=== PATIENT | female | born 1995 | race Two or more races ===

== ENCOUNTER 2017-01-13 12:12 | Emergency (ER) | payer BC ==
[2017-01-13 13:18] LABS: ABSOLUTE BASOPHILS # (AUTO) 0.1 10^3/uL (0.0-0.2); ABSOLUTE EOSINOPHILS # (AUTO) 0.2 10^3/uL (0.0-0.6); ABSOLUTE LYMPHOCYTES (AUTO) 2.2 10^3/uL (0.5-4.7); ABSOLUTE MONOCYTES (AUTO) 0.7 10^3/uL (0.1-1.4); EOSINOPHILS % (AUTO) 2.8 % (0-6); HEMATOCRIT 39.4 % (36.0-47.0); HEMOGLOBIN 13.5 g/dL (12.0-15.5); HGB HCT DIFFERENCE 1.1; LYMPHOCYTES % (AUTO) 27.4 % (13-45); MEAN CORPUSCULAR HEMOGLOBIN 31.8 pg (27.0-33.4); MEAN CORPUSCULAR HGB CONC 34.3 g/dL (32.0-36.0); MEAN CORPUSCULAR VOLUME 93 fl (80-97); MONOCYTES % (AUTO) 8.3 % (3-13); RED BLOOD COUNT 4.24 10^6/uL (3.72-5.28); RED CELL DISTRIBUTION WIDTH 12.7 % (11.5-14.0); SEGMENTED NEUTROPHILS % (AUTO) 60.5 % (42-78); WHITE BLOOD COUNT 8.2 10^3/uL (4.0-10.5)
[2017-01-13 13:26] LABS: APPEARANCE,URINE CLEAR; BILIRUBIN,URINE NEGATIVE (NEGATIVE); GLUCOSE, URINE NEGATIVE (NEGATIVE); KETONES,URINE NEGATIVE (NEGATIVE); LEUKOCYTE ESTERASE,URINE NEGATIVE (NEGATIVE); NITRITE,URINE NEGATIVE (NEGATIVE); PROTEIN,URINE NEGATIVE (NEGATIVE); UROBILINOGEN,URINE NEGATIVE mg/dL (<2.0)
[2017-01-13 13:33] LABS: ALANINE AMINOTRANSFERASE 36 U/L (9-52); ALBUMIN 4.4 g/dL (3.5-5.0); ALKALINE PHOSPHATASE 82 U/L (38-126); ANION GAP 12 (5-19); ASPARTATE AMINO TRANSFERASE 20 U/L (14-36); BILIRUBIN,DIRECT 0.3 mg/dL (0.0-0.4); BILIRUBIN,TOTAL 0.6 mg/dL (0.2-1.3); BLOOD UREA NITROGEN 11 mg/dL (7-20); CALCIUM 9.7 mg/dL (8.4-10.2); CARBON DIOXIDE 20 mmol/L (22-30); CHLORIDE 107 mmol/L (98-107); CREATININE RESULT 0.68 mg/dL (0.52-1.25); GLUCOSE 88 mg/dL (75-110); POTASSIUM 4.1 mmol/L (3.6-5.0); SODIUM 139.2 mmol/L (137-145); TOTAL PROTEIN 7.9 g/dL (6.3-8.2)
--- NOTE | 2017-01-13 13:52 | ER Document Report ---
HPI - HPI Pain Level: 5 Notes: Patient is a 21-year-old female, , who presents the ED complaining of lower abdominal/pelvic cramping intermittently 2 days. Currently the patient does not have any discomfort. Patient states that this is her first and she just wants to make sure that the baby is okay. Patient states that she would like to get out a hearing eat some food as soon as the results are in. Patient does note urinary frequency over the last couple days as well without any burning. Patient denies any vaginal discharge or bleeding along with any urethral discharge or bleeding. Patient states that she is still eating and drinking normally otherwise. Her bowel movements have been normal. She denies any recent illness, travel, sick contacts. Denies any drug allergies. Patient is taking prenatals daily. Denies any other significant past medical history. Patient states that she is being seen by the health department and has a scheduled ultrasound in the next week or so. Patient admits to smoking but denies any other illicit drug use or alcohol intake. Denies any fever, headache , URI, sore throat, chest pain, palpitations, syncope, cough, wheeze, shortness breath, dyspnea, abdominal pain otherwise, nausea/vomiting/diarrhea/constipation , numbness/tingling, or rash. - ROS Notes: REVIEW OF SYSTEMS: CONSTITUTIONAL : Denies fever, chills, or sweats. Denies recent illness. EENT: Denies eye, ear, throat, or mouth pain or symptoms. Denies nasal or sinus congestion or discharge. Denies throat, tongue, or mouth swelling or difficulty swallowing. CARDIOVASCULAR: Denies chest pain. Denies palpitations or racing or irregular heart beat. Denies ankle edema. RESPIRATORY: Denies cough, cold, or chest congestion. Denies shortness of breath, difficulty breathing, or wheezing. GASTROINTESTINAL: see hpi GENITOURINARY: see hpi FEMALE GENITOURINARY: Denies vaginal bleeding, Denies vaginal discharge or odor. MUSCULOSKELETAL: Denies back or neck pain or stiffness. Denies joint pain or swelling. SKIN: Denies rash, lesions or sores. NEUROLOGICAL: Denies confusion or altered mental status. Denies passing out or loss of consciousness. Denies dizziness or lightheadedness. Denies headache. Denies weakness or paralysis or loss of use of either side. Denies problems with gait or speech. Denies sensory loss, numbness, or tingling. ALL OTHER SYSTEMS REVIEWED AND NEGATIVE. Dictation was performed using [employer] voice recognition software - CARDIOVASCULAR Cardiovascular: DENIES: Chest pain - DERM Skin Color: Normal Past Medical History - Social History Smoking Status: Current Every Day Smoker Chew tobacco use (# tins/day): No Frequency of alcohol use: None Drug Abuse: None Family History: Reviewed & Not Pertinent Renal/ Medical History: Denies: Hx Peritoneal Dialysis Surgical Hx: Negative - Immunizations Hx Diphtheria, Pertussis, Tetanus Vaccination: Yes Vertical Provider Document - CONSTITUTIONAL Agree With Documented VS: Yes Notes: PHYSICAL EXAMINATION: GENERAL: Well-appearing, well-nourished and in no acute distress. HEAD: Atraumatic, normocephalic. EYES: Pupils equal round and reactive to light, extraocular movements intact, sclera anicteric, conjunctiva are normal. ENT: EAC clear b/l. TM's intact b/l without erythema, fluid, or perforation. Nares patent and without discharge. oropharynx clear without exudates. No tonsilar hypertrophy or erythema. Moist mucous membranes. No sinus tenderness. NECK: Normal range of motion, supple without lymphadenopathy LUNGS: Breath sounds clear to auscultation bilaterally and equal. No wheezes rales or rhonchi. HEART: Regular rate and rhythm without murmurs, rubs, gallops. ABDOMEN: Soft, nondistended abdomen. No guarding, no rebound. No masses appreciated. Normal bowel sounds present. No CVA tenderness bilaterally. + mild tenderness to pelvic palpation. Psoas/obturator/rosving's negative. Musculoskeletal: FROM to passive/active. Strength 5+/5. Extremities: No cyanosis, clubbing, or edema b/l. Peripheral pulses 2+. Capillary refill less than 3 seconds. NEUROLOGICAL: Normal speech, normal gait. Normal sensory, motor exams PSYCH: Normal mood, normal affect. SKIN: Warm, Dry, normal turgor, no rashes or lesions noted. - INFECTION CONTROL TRAVEL OUTSIDE OF THE [place] IN LAST 30 DAYS: No - RESPIRATORY O2 Sat by Pulse Oximetry: 99 Course - Re-evaluation Re-evalutation: 01/13/17 14:15 Patient is an afebrile, well-hydrated, female who presents to the ED with pelvic cramping/pain without any vaginal bleeding or discharge. Vitals are stable. PE otherwise unremarkable. Ultrasound showed a left gestational sac approximately 5 weeks of age without any free fluid or masses noted. Beta hCG was just over 1200 which correlates well with the date range of the . CBC, CMP, urinalysis were unremarkable for any acute pathology. Reviewed with Dr. Rose who is in agreement with discharge with close follow-up with the OB/ [facility] in 1-2 days for a recheck and another beta hCG. Conservative measures for symptoms. Pt declined tylenol today. Advised recheck with her [employer] in the next 1-2 days. Return to the ED with any worsening/concerning symptoms otherwise as reviewed in discharge. Patient is in agreement. - Vital Signs Vital signs: Temp Pulse Resp BP Pulse Ox 98.0 F 100 20 129/75 H 99 01/13/17 12:30 01/13/17 12:30 01/13/17 12:30 01/13/17 12:30 01/13/17 12:30 - Laboratory Result Diagrams: 01/13/17 12:59 01/13/17 12:59 Discharge - Discharge Clinical Impression: Pelvic cramping Condition: Stable Disposition: HOME, SELF-CARE Additional Instructions: Maintain adequate fluid intake Tylenol as needed Take prenatals as otherwise directed Recheck with your OB-[facility]/Health department in 1-2 days for a recheck Return to the ED with any worsening symptoms and/or development of fever, headache, chest pain, palpitations, syncope, shortness of breath, trouble breathing, worsening abdominal pain, n/v/d, blood in stool/urine, vaginal bleeding, vaginal discharge/foul odor, loss of control of bowel/bladder, urinary retention, muscle weakness/paralysis, saddle anesthesia, numbness/ tingling, or other worsening symptoms that are concerning to you. Forms: Elevated Blood Pressure, Smoking Cessation Education [facility]errals: [facility]Provider [facility] - Follow up tomorrow
--- NOTE | 2017-01-13 14:01 | RADIOLOGY REPORT (SQ) ---
EXAM DESCRIPTION: U/S OB TRANSVAGINAL W/O DOP COMPLETED DATE/TIME: 01/13/2017 1:51 pm REASON FOR STUDY: pelvic pain COMPARISON: None. TECHNIQUE: Transvaginal static and realtime grayscale images acquired of the pelvis. Additional shahram cted spectral and color Doppler images recorded. All images stored on PACs. bHCG: Not available. LIMITATIONS: None. FINDINGS: UTERUS: No masses. Possible bicornuate configuration. GESTATIONAL SAC: Possible gestational sac on the left side, measuring 5 weeks. YOLK SAC: No. POLE: No. RIGHT ADNEXA: Normal ovary with normal vascular flow. No adnexal free fluid. No adnexal masses. LEFT ADNEXA: Normal ovary with normal vascular flow. No adnexal free fluid. No adnexal masses. FREE FLUID: None. OTHER: No other significant finding. 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 POSSIBLE EARLY INTRAUTERINE ON THE LEFT SIDE. BHCG LEVEL NOT AVAILABLE FOR CORRELATION WITH US FINDINGS. CONSIDER F/U BHCG AND/OR ULTRASOUND FOR VERIFICATION AND TO EXCLUDE ECTOPIC . Trimester of : First - 0 to 13 weeks. TECHNICAL DOCUMENTATION: JOB ID: [id number]- All Rights Reserved
[2017-01-13 14:43] VITALS: BP 103/76
== END 2017-01-13 14:40 | disposition home or self-care (01) ==
LOC: ER 12:12
DX: O26.899 Other specified pregnancy related conditions, unspecified trimester (principal); R10.2 Pelvic and perineal pain; R35.0 Frequency of micturition; O99.330 Smoking (tobacco) complicating pregnancy, unspecified trimester; Z3A.00 Weeks of gestation of pregnancy not specified; Z79.899 Other long term (current) drug therapy
CPT/HCPCS: 36415; 76817; 80053; 81001; 84702; 85025; 99284

== ENCOUNTER 2017-08-17 14:20 | Outpatient (CLI) | payer BC, OTHER ==
[2017-08-17 15:08] LABS: AMORPHOUS SEDIMENT,URINE TRACE /HPF; APPEARANCE,URINE TURBID; BILIRUBIN,URINE NEGATIVE (NEGATIVE); COLOR,URINE YELLOW; GLUCOSE, URINE NEGATIVE (NEGATIVE); KETONES,URINE NEGATIVE (NEGATIVE); LEUKOCYTE ESTERASE,URINE SMALL (NEGATIVE); NITRITE,URINE NEGATIVE (NEGATIVE); PROTEIN,URINE NEGATIVE (NEGATIVE); URINE SPECIFIC GRAVITY 1.013; UROBILINOGEN,URINE NEGATIVE mg/dL (<2.0)
[2017-08-17 15:27] LABS: URINE AMPHETAMINES SCREEN NEGATIVE; URINE BARBITURATES SCREEN NEGATIVE; URINE BENZODIAZEPINES SCREEN NEGATIVE; URINE COCAINE SCREEN NEGATIVE; URINE MARIJUANA (THC) SCREEN NEGATIVE; URINE METHADONE SCREEN NEGATIVE; URINE PHENCYCLIDINE SCREEN NEGATIVE
[2017-08-17 15:41] LABS: ABSOLUTE EOSINOPHILS # (AUTO) 0.2 10^3/uL (0.0-0.6); ABSOLUTE LYMPHOCYTES (AUTO) 1.6 10^3/uL (0.5-4.7); ABSOLUTE MONOCYTES (AUTO) 0.8 10^3/uL (0.1-1.4); ABSOLUTE NEUT (AUTO) 7.4 10^3/uL (1.7-8.2); BASOPHILS % (AUTO) 0.3 % (0-2); EOSINOPHILS % (AUTO) 1.5 % (0-6); HEMATOCRIT 31.8 % (36.0-47.0); LYMPHOCYTES % (AUTO) 16.3 % (13-45); MEAN CORPUSCULAR HGB CONC 34.5 g/dL (32.0-36.0); MEAN CORPUSCULAR VOLUME 90 fl (80-97); MONOCYTES % (AUTO) 7.9 % (3-13); PLATELET COUNT 244 10^3/uL (150-450); RED BLOOD COUNT 3.54 10^6/uL (3.72-5.28); RED CELL DISTRIBUTION WIDTH 13.2 % (11.5-14.0); TOTAL CELLS COUNTED % (AUTO) 100 %
[2017-08-17] MEDS ORDERED: RINGERS SOLUTION,LACTATED 1,000 ML IV PRN (15:49)
== END 2017-08-17 16:52 | disposition home or self-care (01) ==
LOC: LC 14:20
PROVIDERS: ATTEND Obstetrics & Gynecology Gynecology
PROC: 4A1HXCZ Monitoring of Products of Conception, Cardiac Rate, External Approach (ICD-10-PCS; principal; 2017-08-17)
DX: O26.893 Other specified pregnancy related conditions, third trimester (principal); R10.9 Unspecified abdominal pain; E86.0 Dehydration; Z3A.34 34 weeks gestation of pregnancy
CPT/HCPCS: 36415; 59025; 80307; 81001; 85025

== ENCOUNTER 2017-08-20 06:32 | Outpatient (CLI) | payer BC, OTHER ==
[2017-08-20 07:45] LABS: APPEARANCE,URINE CLOUDY; BILIRUBIN,URINE NEGATIVE (NEGATIVE); COLOR,URINE YELLOW; GLUCOSE, URINE NEGATIVE (NEGATIVE); KETONES,URINE NEGATIVE (NEGATIVE); LEUKOCYTE ESTERASE,URINE LARGE (NEGATIVE); NITRITE,URINE NEGATIVE (NEGATIVE); PROTEIN,URINE NEGATIVE (NEGATIVE); URINE SPECIFIC GRAVITY 1.014; UROBILINOGEN,URINE NEGATIVE mg/dL (<2.0)
[2017-08-20 08:00] LABS: URINE AMPHETAMINES SCREEN NEGATIVE; URINE BARBITURATES SCREEN NEGATIVE; URINE BENZODIAZEPINES SCREEN NEGATIVE; URINE COCAINE SCREEN NEGATIVE; URINE MARIJUANA (THC) SCREEN NEGATIVE; URINE METHADONE SCREEN NEGATIVE; URINE PHENCYCLIDINE SCREEN NEGATIVE
[2017-08-20 09:00] LABS: ABSOLUTE BASOPHILS # (AUTO) 0.1 10^3/uL (0.0-0.2); ABSOLUTE EOSINOPHILS # (AUTO) 0.2 10^3/uL (0.0-0.6); ABSOLUTE LYMPHOCYTES (AUTO) 1.9 10^3/uL (0.5-4.7); ABSOLUTE MONOCYTES (AUTO) 0.9 10^3/uL (0.1-1.4); ABSOLUTE NEUT (AUTO) 7.7 10^3/uL (1.7-8.2); BASOPHILS % (AUTO) 0.5 % (0-2); EOSINOPHILS % (AUTO) 2.1 % (0-6); HEMATOCRIT 31.7 % (36.0-47.0); HEMOGLOBIN 10.9 g/dL (12.0-15.5); LYMPHOCYTES % (AUTO) 17.9 % (13-45); MEAN CORPUSCULAR HGB CONC 34.6 g/dL (32.0-36.0); MEAN CORPUSCULAR VOLUME 90 fl (80-97); MONOCYTES % (AUTO) 8.7 % (3-13); PLATELET COUNT 238 10^3/uL (150-450); RED BLOOD COUNT 3.53 10^6/uL (3.72-5.28); RED CELL DISTRIBUTION WIDTH 12.6 % (11.5-14.0); SEGMENTED NEUTROPHILS % (AUTO) 70.8 % (42-78); TOTAL CELLS COUNTED % (AUTO) 100 %; WHITE BLOOD COUNT 10.8 10^3/uL (4.0-10.5)
[2017-08-20 09:16] LABS: ALANINE AMINOTRANSFERASE 19 U/L (9-52); ALBUMIN 3.2 g/dL (3.5-5.0); ALKALINE PHOSPHATASE 92 U/L (38-126); AMYLASE 50 U/L (30-110); ANION GAP 7 (5-19); ASPARTATE AMINO TRANSFERASE 17 U/L (14-36); BILIRUBIN,DIRECT 0.3 mg/dL (0.0-0.4); BILIRUBIN,TOTAL 0.3 mg/dL (0.2-1.3); BLOOD UREA NITROGEN 5 mg/dL (7-20); CALCIUM 9.1 mg/dL (8.4-10.2); CARBON DIOXIDE 22 mmol/L (22-30); CHLORIDE 107 mmol/L (98-107); GLUCOSE 81 mg/dL (75-110); LIPASE 60.8 U/L (23-300); POTASSIUM 3.5 mmol/L (3.6-5.0); SODIUM 135.9 mmol/L (137-145); TOTAL PROTEIN 6.1 g/dL (6.3-8.2)
== END 2017-08-20 09:51 | disposition home or self-care (01) ==
LOC: LC 06:32
PROVIDERS: ATTEND Student in an Organized Health Care Education/Training Program
PROC: 4A1HXCZ Monitoring of Products of Conception, Cardiac Rate, External Approach (ICD-10-PCS; principal; 2017-08-20)
DX: O47.03 False labor before 37 completed weeks of gestation, third trimester (principal); Z3A.35 35 weeks gestation of pregnancy
CPT/HCPCS: 36415; 59025; 80053; 80307; 81001; 82150; 83690; 85025

== ENCOUNTER 2017-08-29 15:47 | Outpatient (CLI) | payer BC, OTHER ==
[2017-08-29 16:28] LABS: AMORPHOUS SEDIMENT,URINE TRACE /HPF; APPEARANCE,URINE CLOUDY; BILIRUBIN,URINE NEGATIVE (NEGATIVE); COLOR,URINE STRAW; GLUCOSE, URINE NEGATIVE (NEGATIVE); KETONES,URINE NEGATIVE (NEGATIVE); LEUKOCYTE ESTERASE,URINE SMALL (NEGATIVE); NITRITE,URINE NEGATIVE (NEGATIVE); PROTEIN,URINE NEGATIVE (NEGATIVE); URINE SPECIFIC GRAVITY 1.003; UROBILINOGEN,URINE NEGATIVE mg/dL (<2.0)
[2017-08-29 16:47] LABS: URINE AMPHETAMINES SCREEN NEGATIVE; URINE BARBITURATES SCREEN NEGATIVE; URINE BENZODIAZEPINES SCREEN NEGATIVE; URINE COCAINE SCREEN NEGATIVE; URINE MARIJUANA (THC) SCREEN NEGATIVE; URINE METHADONE SCREEN NEGATIVE; URINE PHENCYCLIDINE SCREEN NEGATIVE
--- NOTE | 2017-08-29 17:24 | Non Stress Test Report ---
Non Stress Test Datetime Report Generated by CPN: 08/29/2017 17:24 DEMOGRAPHIC Test Number: 1 EGA NST: 36.4 EGA NST: 35.2 EGA NST: 34.6 INDICATION Indication for Study: Ordered by Provider Indication for Study: Ordered by Provider Indication for Study: Ordered by Provider Indication for Study (NST) Other: LC MONITORING Monitor Explained: Monitor Explained; Test Explained Monitor Explained: Monitor Explained; Test Explained; Patient Verbalized Understanding Monitor Explained: Monitor Explained; Test Explained; Patient Verbalized Understanding Time on Monitor: 08/29/2017 16:10 Time on Monitor: 08/20/2017 06:51 Time on Monitor: 08/17/2017 14:55 Time off Monitor: 08/29/2017 17:07 Time off Monitor: 08/20/2017 09:32 Time off Monitor: 08/17/2017 16:35 NST Duration: 57 NST Duration: 161 NST Duration: 100 NST INTERVENTIONS NST Interventions: PO Hydration; Reposition Patient NST Interventions: PO Hydration; IV Fluids NST Interventions: None Physician Notified NST: Dr. Burleson Physician Notified NST: Dr Reynolds BABY A: [id number] BABY A Movement : Present Movement : Present Movement : Present Contraction Frequency : None traced Contraction Frequency : Irregular Contraction Frequency : denies FHR Baseline : 130 FHR Baseline : 115 FHR Baseline : 110 Accelerations : 15X15 Accelerations : 15X15 Accelerations : 15X15 Decelerations : None Decelerations : None Decelerations : None Variability : Moderate 6-25bpm Variability : Moderate 6-25bpm Variability : Moderate 6-25bpm NST Review: Meets Criteria for Reactive NST NST Review: Meets Criteria for Reactive NST NST Review: Meets Criteria for Reactive NST NST Review and Verified By : Solitario Ortiz [facility] NST Results: Reactive NST Results: Reactive NST Results: Reactive NST REPORT Report Trigger: Send Report
== END 2017-08-29 17:17 | disposition home or self-care (01) ==
LOC: LC 15:47
PROVIDERS: ATTEND Obstetrics & Gynecology
PROC: 4A1HXCZ Monitoring of Products of Conception, Cardiac Rate, External Approach (ICD-10-PCS; principal; 2017-08-29)
DX: O47.03 False labor before 37 completed weeks of gestation, third trimester (principal); Z3A.36 36 weeks gestation of pregnancy
CPT/HCPCS: 59025; 80307; 81001

== ENCOUNTER 2017-09-01 14:37 | Outpatient (CLI) | payer BC, OTHER ==
--- NOTE | 2017-09-01 15:28 | Non Stress Test Report ---
Non Stress Test Datetime Report Generated by CPN: 09/01/2017 15:28 DEMOGRAPHIC EGA NST: 37.0 INDICATION Indication for Study: Ordered by Provider VITAL SIGNS Temperature - NST: 97.8 Pulse - NST: 88 RESP - NST: 14 NBPSYS NST: 101 NBPDIA NST: 57 MONITORING Monitor Explained: Monitor Explained; Test Explained; Patient Verbalized Understanding Time on Monitor: 09/01/2017 14:56 Time off Monitor: 09/01/2017 15:17 NST Duration: 21 NST INTERVENTIONS NST Interventions: PO Hydration; Reposition Patient Physician Notified NST: DR TAY BABY A: [id number] BABY A Movement : Present Contraction Frequency : NONE FHR Baseline : 125 Accelerations : 15X15 Decelerations : None Variability : Moderate 6-25bpm NST Review: Meets Criteria for Reactive NST NST Review and Verified By : Anton West RN NST Results: Reactive NST REPORT Report Trigger: Send Report
== END 2017-09-01 15:23 | disposition home or self-care (01) ==
LOC: LC 14:37
PROVIDERS: ATTEND Student in an Organized Health Care Education/Training Program
PROC: 4A1HXCZ Monitoring of Products of Conception, Cardiac Rate, External Approach (ICD-10-PCS; principal; 2017-09-01)
DX: O47.1 False labor at or after 37 completed weeks of gestation (principal); Z3A.37 37 weeks gestation of pregnancy
CPT/HCPCS: 59025

== ENCOUNTER 2017-09-03 20:47 | Outpatient (CLI) | payer BC, OTHER ==
[2017-09-03 21:29] LABS: APPEARANCE,URINE CLOUDY; BILIRUBIN,URINE NEGATIVE (NEGATIVE); COLOR,URINE YELLOW; GLUCOSE, URINE NEGATIVE (NEGATIVE); KETONES,URINE NEGATIVE (NEGATIVE); LEUKOCYTE ESTERASE,URINE LARGE (NEGATIVE); NITRITE,URINE NEGATIVE (NEGATIVE); PROTEIN,URINE NEGATIVE (NEGATIVE); URINE SPECIFIC GRAVITY 1.014; UROBILINOGEN,URINE NEGATIVE mg/dL (<2.0)
[2017-09-03 21:32] LABS: AMNISURE (ROM) NEGATIVE (NEGATIVE)
[2017-09-03 21:44] LABS: URINE AMPHETAMINES SCREEN NEGATIVE; URINE BARBITURATES SCREEN NEGATIVE; URINE BENZODIAZEPINES SCREEN NEGATIVE; URINE COCAINE SCREEN NEGATIVE; URINE MARIJUANA (THC) SCREEN NEGATIVE; URINE METHADONE SCREEN NEGATIVE; URINE PHENCYCLIDINE SCREEN NEGATIVE
== END 2017-09-03 22:06 | disposition home or self-care (01) ==
LOC: LC 20:47
PROVIDERS: ATTEND Obstetrics & Gynecology Gynecology
PROC: 4A1HXCZ Monitoring of Products of Conception, Cardiac Rate, External Approach (ICD-10-PCS; principal; 2017-09-03)
DX: O47.1 False labor at or after 37 completed weeks of gestation (principal); Z3A.37 37 weeks gestation of pregnancy
CPT/HCPCS: 59025; 80307; 81005; 84112

== ENCOUNTER 2017-09-09 04:52 | Outpatient (CLI) | payer BC, OTHER ==
--- NOTE | 2017-09-09 04:55 | Non Stress Test Report ---
Non Stress Test Datetime Report Generated by CPN: 09/09/2017 04:55 DEMOGRAPHIC Test Number: 5 EGA NST: 37.2 INDICATION Indication for Study: Ordered by Provider VITAL SIGNS Temperature - NST: 98.7 Pulse - NST: 82 RESP - NST: 18 NBPSYS NST: 98 NBPDIA NST: 55 URINE RESULTS Urine Protein, NST: Negative Urine Ketones - NST: Negative Urine Glucose - NST: Negative Urine Blood - NST: Negative MONITORING Monitor Explained: Monitor Explained; Test Explained; Patient Verbalized Understanding Time on Monitor: 09/03/2017 21:08 Time off Monitor: 09/03/2017 21:45 NST Duration: 37 NST INTERVENTIONS NST Interventions: None Physician Notified NST: Dr. Reynolds BABY A: [id number] BABY A Movement : Present Contraction Frequency : None FHR Baseline : 130 Accelerations : 15X15 Decelerations : None Variability : Moderate 6-25bpm NST Review: Meets Criteria for Reactive NST NST Review and Verified By : S. Lattibeapaddyir, RNC NST Results: Reactive NST REPORT Report Trigger: Send Report
[2017-09-09 05:36] LABS: APPEARANCE,URINE CLOUDY; BILIRUBIN,URINE NEGATIVE (NEGATIVE); COLOR,URINE YELLOW; GLUCOSE, URINE NEGATIVE (NEGATIVE); KETONES,URINE NEGATIVE (NEGATIVE); LEUKOCYTE ESTERASE,URINE LARGE (NEGATIVE); NITRITE,URINE NEGATIVE (NEGATIVE); PROTEIN,URINE NEGATIVE (NEGATIVE); URINE SPECIFIC GRAVITY 1.004; UROBILINOGEN,URINE NEGATIVE mg/dL (<2.0)
[2017-09-09 06:03] LABS: URINE AMPHETAMINES SCREEN NEGATIVE; URINE BARBITURATES SCREEN NEGATIVE; URINE BENZODIAZEPINES SCREEN NEGATIVE; URINE COCAINE SCREEN NEGATIVE; URINE MARIJUANA (THC) SCREEN NEGATIVE; URINE METHADONE SCREEN NEGATIVE; URINE PHENCYCLIDINE SCREEN NEGATIVE
[2017-09-09 07:04] LABS: CHLAM PCR NOT DETECTED (NOT DETECT); GON PCR NOT DETECTED (NOT DETECT)
== END 2017-09-09 06:21 | disposition home or self-care (01) ==
LOC: LC 04:52
PROVIDERS: ATTEND Obstetrics & Gynecology
PROC: 4A1HXCZ Monitoring of Products of Conception, Cardiac Rate, External Approach (ICD-10-PCS; principal; 2017-09-09)
DX: O36.8130 Decreased fetal movements, third trimester, not applicable or unspecified (principal); Z3A.38 38 weeks gestation of pregnancy
CPT/HCPCS: 80307; 81005; 87491; 87591

== ENCOUNTER 2017-09-14 01:47 | Outpatient (CLI) | payer BC, OTHER ==
--- NOTE | 2017-09-14 01:50 | Non Stress Test Report ---
Non Stress Test Datetime Report Generated by CPN: 09/14/2017 01:49 DEMOGRAPHIC EGA NST: 38.1 INDICATION Indication for Study: Decreased Movement; Ordered by Provider; Other Indication for Study (NST) Other: LC decreased FM MONITORING Monitor Explained: Monitor Explained; Test Explained; Patient Verbalized Understanding Time on Monitor: 09/09/2017 05:06 Time off Monitor: 09/09/2017 06:11 NST Duration: 65 NST INTERVENTIONS NST Interventions: PO Hydration; Reposition Patient Physician Notified NST: DR Caleb BABY A: [id number] BABY A Movement : Decreased Contraction Frequency : none FHR Baseline : 115 Accelerations : 15X15 Decelerations : None Variability : Moderate 6-25bpm NST Review: Meets Criteria for Reactive NST NST Review and Verified By : KATY Mahan NST Results: Reactive NST REPORT Report Trigger: Send Report
[2017-09-14 02:20] LABS: APPEARANCE,URINE CLOUDY; BILIRUBIN,URINE NEGATIVE (NEGATIVE); COLOR,URINE YELLOW; GLUCOSE, URINE NEGATIVE (NEGATIVE); KETONES,URINE NEGATIVE (NEGATIVE); LEUKOCYTE ESTERASE,URINE LARGE (NEGATIVE); NITRITE,URINE NEGATIVE (NEGATIVE); PROTEIN,URINE NEGATIVE (NEGATIVE); URINE SPECIFIC GRAVITY 1.005; UROBILINOGEN,URINE NEGATIVE mg/dL (<2.0)
[2017-09-14 02:34] LABS: URINE AMPHETAMINES SCREEN NEGATIVE; URINE BARBITURATES SCREEN NEGATIVE; URINE BENZODIAZEPINES SCREEN NEGATIVE; URINE COCAINE SCREEN NEGATIVE; URINE MARIJUANA (THC) SCREEN NEGATIVE; URINE METHADONE SCREEN NEGATIVE; URINE PHENCYCLIDINE SCREEN NEGATIVE
== END 2017-09-14 03:25 | disposition home or self-care (01) ==
LOC: LC 01:47
PROVIDERS: ATTEND Obstetrics & Gynecology
DX: Z34.90 Encounter for supervision of normal pregnancy, unspecified, unspecified trimester (principal)
CPT/HCPCS: 59025; 80307; 81005

== ENCOUNTER 2017-09-22 16:36 | Outpatient (CLI) | payer BC, OTHER ==
[2017-09-22 17:27] LABS: APPEARANCE,URINE CLOUDY; BILIRUBIN,URINE NEGATIVE (NEGATIVE); COLOR,URINE YELLOW; GLUCOSE, URINE NEGATIVE (NEGATIVE); KETONES,URINE NEGATIVE (NEGATIVE); LEUKOCYTE ESTERASE,URINE LARGE (NEGATIVE); NITRITE,URINE NEGATIVE (NEGATIVE); PROTEIN,URINE NEGATIVE (NEGATIVE); URINE SPECIFIC GRAVITY 1.013; UROBILINOGEN,URINE NEGATIVE mg/dL (<2.0)
[2017-09-22 17:39] LABS: URINE AMPHETAMINES SCREEN NEGATIVE; URINE BARBITURATES SCREEN NEGATIVE; URINE BENZODIAZEPINES SCREEN NEGATIVE; URINE COCAINE SCREEN NEGATIVE; URINE MARIJUANA (THC) SCREEN NEGATIVE; URINE METHADONE SCREEN NEGATIVE; URINE PHENCYCLIDINE SCREEN NEGATIVE
[2017-09-22 17:41] LABS: UR PRO/CREAT RATIO RESULT 0.2 mg/mg (0.0-0.2); URINE CREATININE 102.6 mg/dL (16-327); URINE PROTEIN 16.9 mg/dL (<12)
[2017-09-22 17:45] LABS: ABSOLUTE BASOPHILS # (AUTO) 0.1 10^3/uL (0.0-0.2); ABSOLUTE EOSINOPHILS # (AUTO) 0.1 10^3/uL (0.0-0.6); ABSOLUTE LYMPHOCYTES (AUTO) 1.7 10^3/uL (0.5-4.7); ABSOLUTE MONOCYTES (AUTO) 0.6 10^3/uL (0.1-1.4); ABSOLUTE NEUT (AUTO) 7.5 10^3/uL (1.7-8.2); BASOPHILS % (AUTO) 0.6 % (0-2); EOSINOPHILS % (AUTO) 0.9 % (0-6); HEMATOCRIT 29.7 % (36.0-47.0); HEMOGLOBIN 10.4 g/dL (12.0-15.5); LYMPHOCYTES % (AUTO) 17.2 % (13-45); MEAN CORPUSCULAR HEMOGLOBIN 31.6 pg (27.0-33.4); MEAN CORPUSCULAR HGB CONC 35.2 g/dL (32.0-36.0); MEAN CORPUSCULAR VOLUME 90 fl (80-97); MONOCYTES % (AUTO) 6.4 % (3-13); PLATELET COUNT 223 10^3/uL (150-450); RED CELL DISTRIBUTION WIDTH 13.6 % (11.5-14.0); SEGMENTED NEUTROPHILS % (AUTO) 74.9 % (42-78); TOTAL CELLS COUNTED % (AUTO) 100 %
[2017-09-22 18:04] LABS: ALANINE AMINOTRANSFERASE 22 U/L (9-52); ALBUMIN 3.3 g/dL (3.5-5.0); ALKALINE PHOSPHATASE 109 U/L (38-126); ANION GAP 10 (5-19); ASPARTATE AMINO TRANSFERASE 17 U/L (14-36); BILIRUBIN,DIRECT 0.1 mg/dL (0.0-0.4); BILIRUBIN,TOTAL 0.2 mg/dL (0.2-1.3); BLOOD UREA NITROGEN 6 mg/dL (7-20); CALCIUM 9.3 mg/dL (8.4-10.2); CARBON DIOXIDE 22 mmol/L (22-30); CHLORIDE 104 mmol/L (98-107); GLUCOSE 118 mg/dL (75-110); LDH 347 U/L (313-618); SODIUM 136.1 mmol/L (137-145); TOTAL PROTEIN 5.8 g/dL (6.3-8.2)
--- NOTE | 2017-09-22 18:42 | Non Stress Test Report ---
Non Stress Test Datetime Report Generated by CPN: 09/22/2017 18:42 DEMOGRAPHIC EGA NST: 40.0 INDICATION Indication for Study: Ordered by Provider MONITORING Monitor Explained: Monitor Explained; Test Explained; Patient Verbalized Understanding Time on Monitor: 09/22/2017 17:42 Time off Monitor: 09/22/2017 18:05 NST Duration: 23 NST INTERVENTIONS Physician Notified NST: H. Jus, CNM BABY A Movement : Present Contraction Frequency : occasional FHR Baseline : 125 Accelerations : 15X15 Decelerations : None Variability : Moderate 6-25bpm NST Review: Meets Criteria for Reactive NST NST Review and Verified By : TEJA Restrepo NST Results: Reactive NST REPORT Report Trigger: Send Report
== END 2017-09-22 19:41 | disposition home or self-care (01) ==
LOC: LC 16:36
PROVIDERS: ATTEND Obstetrics & Gynecology
PROC: 4A1HXCZ Monitoring of Products of Conception, Cardiac Rate, External Approach (ICD-10-PCS; principal; 2017-09-22)
DX: O47.1 False labor at or after 37 completed weeks of gestation (principal); O48.0 Post-term pregnancy; Z3A.40 40 weeks gestation of pregnancy
CPT/HCPCS: 36415; 59025; 80053; 80307; 81001; 82570; 83615; 84156; 84550; 85025

== ENCOUNTER 2017-09-23 17:32 | Outpatient (CLI) | payer BC, OTHER ==
[2017-09-23 18:13] LABS: URINE CREATININE 35.5 mg/dL (16-327); URINE PROTEIN 17.5 mg/dL (<12)
[2017-09-23 18:18] LABS: 24 HOUR URINE PROTEIN RESULT 483 mg/day (42-225)
--- NOTE | 2017-09-23 18:36 | RADIOLOGY REPORT (SQ) ---
EXAM DESCRIPTION: U/S OB LIMITED COMPLETED DATE/TIME: 09/23/2017 6:09 pm REASON FOR STUDY: AMBROSIO COMPARISON: 01/13/2017 TECHNIQUE: Limited transabdominal grayscale ultrasound for evaluation of specific requested obstetri miguel a parameters. LIMITATIONS: None. FINDINGS: CERVICAL LENGTH: Not measured. Closed. AMBROSIO: 6.7 cm. Deepest pocket 3.4 cm. FHR: 121 beats per minute. PRESENTATION: Cephalic. OTHER: No other significant findings. IMPRESSION: LIMITED OBSTETRICAL ULTRASOUND WITH MEASURED PARAMETERS DELINEATED ABOVE. Trimester of : Third trimester - 28 weeks to delivery. TECHNICAL DOCUMENTATION: JOB ID: [id number] [employer]- All Rights Reserved Reading location - IP/workstation name: [email or web address]
--- NOTE | 2017-09-23 18:38 | Non Stress Test Report ---
Non Stress Test Datetime Report Generated by CPN: 09/23/2017 18:38 DEMOGRAPHIC EGA NST: 40.1 INDICATION Indication for Study: Ordered by Provider MONITORING Monitor Explained: Monitor Explained; Test Explained; Patient Verbalized Understanding Time on Monitor: 09/23/2017 18:12 Time off Monitor: 09/23/2017 18:36 NST Duration: 24 NST INTERVENTIONS NST Interventions: PO Hydration; Reposition Patient Physician Notified NST: Dr. Caleb BABY A: [id number] BABY A Movement : Present Contraction Frequency : None FHR Baseline : 115 Accelerations : 15X15 Decelerations : None Variability : Moderate 6-25bpm NST Review: Meets Criteria for Reactive NST NST Review and Verified By : TEJA Restrepo Results: Reactive NST REPORT Report Trigger: Send Report
== END 2017-09-23 18:47 | disposition home or self-care (01) ==
LOC: LC 17:32
PROVIDERS: ATTEND Obstetrics & Gynecology
PROC: 4A1HXCZ Monitoring of Products of Conception, Cardiac Rate, External Approach (ICD-10-PCS; principal; 2017-09-23)
DX: O47.1 False labor at or after 37 completed weeks of gestation (principal); Z3A.40 40 weeks gestation of pregnancy
CPT/HCPCS: 59025; 76815; 82570; 84156

== ENCOUNTER 2017-09-24 21:53 | Inpatient (IN) | payer BC, OTHER ==
[2017-09-24] MEDS ORDERED: RINGERS SOLUTION,LACTATED 300 ML IV ONE (22:24)
[2017-09-24] MEDS ORDERED: DINOPROSTONE 10 MG VAGINAL INSERT.SR PV ONE (22:24)
[2017-09-24 22:36] LABS: HEMATOCRIT 31.1 % (36.0-47.0); HEMOGLOBIN 10.7 g/dL (12.0-15.5); MEAN CORPUSCULAR HEMOGLOBIN 30.9 pg (27.0-33.4); MEAN CORPUSCULAR HGB CONC 34.3 g/dL (32.0-36.0); MEAN CORPUSCULAR VOLUME 90 fl (80-97); PLATELET COUNT 234 10^3/uL (150-450); RED BLOOD COUNT 3.45 10^6/uL (3.72-5.28); RED CELL DISTRIBUTION WIDTH 13.3 % (11.5-14.0); WHITE BLOOD COUNT 9.7 10^3/uL (4.0-10.5)
[2017-09-24 22:50] LABS: APPEARANCE,URINE CLOUDY; BILIRUBIN,URINE NEGATIVE (NEGATIVE); COLOR,URINE YELLOW; GLUCOSE, URINE 50 mg/dL (NEGATIVE); KETONES,URINE NEGATIVE (NEGATIVE); LEUKOCYTE ESTERASE,URINE SMALL (NEGATIVE); NITRITE,URINE NEGATIVE (NEGATIVE); PROTEIN,URINE NEGATIVE (NEGATIVE); UROBILINOGEN,URINE NEGATIVE mg/dL (<2.0)
[2017-09-24 22:53] LABS: ALANINE AMINOTRANSFERASE 23 U/L (9-52); ALBUMIN 3.4 g/dL (3.5-5.0); ALKALINE PHOSPHATASE 101 U/L (38-126); ANION GAP 8 (5-19); ASPARTATE AMINO TRANSFERASE 16 U/L (14-36); BILIRUBIN,DIRECT 0.1 mg/dL (0.0-0.4); BILIRUBIN,TOTAL 0.2 mg/dL (0.2-1.3); BLOOD UREA NITROGEN 7 mg/dL (7-20); CALCIUM 10.2 mg/dL (8.4-10.2); CARBON DIOXIDE 25 mmol/L (22-30); CHLORIDE 105 mmol/L (98-107); GLUCOSE 103 mg/dL (75-110); LDH 353 U/L (313-618); POTASSIUM 3.1 mmol/L (3.6-5.0); SODIUM 138.1 mmol/L (137-145); URIC ACID 4.2 mg/dL (2.5-6.2)
[2017-09-24 23:08] LABS: URINE AMPHETAMINES SCREEN NEGATIVE; URINE BARBITURATES SCREEN NEGATIVE; URINE BENZODIAZEPINES SCREEN NEGATIVE; URINE COCAINE SCREEN NEGATIVE; URINE MARIJUANA (THC) SCREEN NEGATIVE; URINE METHADONE SCREEN NEGATIVE; URINE PHENCYCLIDINE SCREEN NEGATIVE
[2017-09-24] MEDS ORDERED: DINOPROSTONE 10 MG VAGINAL INSERT.SR ONE (23:20)
[2017-09-25 00:21] LABS: CHLAM PCR NOT DETECTED (NOT DETECT); GON PCR NOT DETECTED (NOT DETECT)
[2017-09-25] MEDS ORDERED: ZOLPIDEM TARTRATE 5 MG TABLET PO ONE (02:33)
[2017-09-25] MEDS ORDERED: ZOLPIDEM TARTRATE 5 MG TABLET ONE (02:34)
[2017-09-25] MEDS: RINGERS SOLUTION,LACTATED 1,000 ML IV PRN (02:36)
--- NOTE | 2017-09-25 08:31 | Admission Physical ---
Datetime Report Generated by CPN: 09/25/2017 08:30 CURRENT ADMISSION Chief Complaint: Scheduled Induction of Labor Indication for Induction: PreEclampsia Indication for Induction- Other: 24 hr urine protein-483 Admit Impression : Term, Intrauterine Admit Plan: Admit to Unit; Initiate Labor Induction Protocol ALLERGIES Medication Allergies: No Medication Allergies: No Known Allergies (09/24/2017) Latex: No Latex Allergies Food Allergies: None Environmental Allergies: None OBSTETRICAL HISTORY EDC: 09/22/2017 00:00 : 2 Para: 0 Term: 0 : 0 SAB: 0 IAB: 1 Ectopic: 0 Livin Cesareans: 0 VBACs: 0 Multiple Births: 0 Gestational Diabetes: No Rh Sensitization: No Incompetent Cervix: No ANIRUDH: No Infertility: No ART Treatment: No Uterine Anomaly: No IUGR: No Hx Previous C/S: No Macrosomia: No Hx Loss/Stillborn: No PIH: No Hx : No Placenta Previa/Abruption: No Depression/PP Depression: No PTL/PROM: No Post Hemorrhage: No Current Procedures: Ultrasound; NST Obstetrical History Comments: G1- EA2014 G2- current SEE RECORDS Alcohol: No Marijuana : No Cocaine: No Other Illicit Drugs: No Cigarettes: Current Everyday Smoker. [id number] Cigarette Frequency: 5 - 10 per day Advised to Stop: Yes MEDICAL HISTORY Diabetes: No Blood Transfusion: No Pulmonary Disease (Asthma, TB): No Breast Disease: No Hypertension: No [place] Surgery: No Heart Disease: No Hosp/Surgery: No Autoimmune Disorder: No Anesthetic Complications: No Kidney Disease: No Abnormal Pap Smear: No Neuro/Epilepsy: No Psychiatric Disorders: Yes Other Medical Diseases: No Hepatitis/Liver Disease: No Significant Family History: No Varicosities/Phlebitis: No Trauma/Violence : No Thyroid Dysfunction: No Medical History Comments: hx of anxiety and depression- not currently taking meds INFECTIOUS HISTORY Gonorrhea: No Genital Herpes: No Chlamydia: Yes Tuberculosis: No Syphilis: No Hepatitis: No HIV/AIDS Exposure: No Rash or Viral Illness: No HPV: No Infectious History Comments: Chlamydia 08/27/17 - JAVED negative PHYSICAL EXAM General: Normal HEENT: Normal Neurologic: Normal Thyroid: Deferred Heart: Normal Lungs: Normal Breast: Deferred Back: Normal Abdomen: Normal Genitourinary Exam: Deferred Extremities: Normal DTRs: Normal Pelvic Type: Adequate Physical Exam Comments: Gravid uterus Vital Signs: Reviewed; Within Normal Limits MEMBRANES Membranes: Intact FETUS A EGA: 40.3 Monitoring: External US FHR- Baseline: 120 Variability: Moderate 6-25bpm Accelerations: 15X15 FHR Category: Category I Presentation: Vertex Admit Comment: Social primigravida Smoker Anxiety Chlamydia in [id number] 24hr urine protein-483 IOL for mild pre-eclampsia Cervical ripening PLANS FOR LABOR AND DELIVERY Labor and Delivery: None Pain Management: Medications; Epidural Feeding Preference: Breast Benefit of Breast Feed Discussed: Yes Circumcision: No INFORMED CONSENT Assignment: Indigo Ellis MD Signature: with User ID: [email or web address] : with User ID: [email or web address] : I personally evaluated and examined the patient in conjunction with the MLP and agree with the assessment, treatment plan and disposition.
[2017-09-25] MEDS ORDERED: MISOPROSTOL 0.1 MG TABLET PO ONE ×3 (12:35→17:44)
[2017-09-25] MEDS ORDERED: MISOPROSTOL 0.1 MG TABLET ONE ×2 (12:46→17:47)
[2017-09-25] MEDS ORDERED: MISOPROSTOL 0.1 MG TABLET PV ONE (13:00)
[2017-09-25] MEDS ORDERED: HYDROXYZINE PAMOATE 50 MG CAPSULE ONE (17:56)
[2017-09-25] MEDS ORDERED: NALBUPHINE HCL INJ 10 MG/1 ML AMPULE INJ ONE (18:44)
[2017-09-25] MEDS ORDERED: PROMETHAZINE HCL INJ 25 MG/1 ML VIAL ONE ×2 (18:44→22:52)
[2017-09-25] MEDS ORDERED: PROMETHAZINE HCL INJ 25 MG/1 ML VIAL IV ONE (18:44)
[2017-09-25] MEDS ORDERED: NALBUPHINE HCL INJ 10 MG/1 ML AMPULE ONE ×2 (18:44→22:52)
[2017-09-25] MEDS ORDERED: DINOPROSTONE 10 MG VAGINAL INSERT.SR PV ONE (21:56)
[2017-09-25] MEDS ORDERED: DINOPROSTONE 10 MG VAGINAL INSERT.SR ONE (21:59)
[2017-09-26] MEDS ORDERED: MISOPROSTOL 0.1 MG TABLET ONE (02:47)
[2017-09-26] MEDS ORDERED: MORPHINE SULFATE 10 MG/ML INJ IM ONE (03:00)
[2017-09-26] MEDS ORDERED: MISOPROSTOL 0.1 MG TABLET PV ONE (03:00)
[2017-09-26] MEDS ORDERED: MORPHINE SULFATE 10 MG/ML INJ IV ONE (03:00)
[2017-09-26] MEDS ORDERED: MISOPROSTOL 0.1 MG TABLET PO ONE (03:00)
[2017-09-26] MEDS: RINGERS SOLUTION,LACTATED 1,000 ML IV PRN (03:04)
[2017-09-26] MEDS ORDERED: ONDANSETRON HCL INJ/PF 4 MG/2 ML SDV IV ONE (05:18)
[2017-09-26] MEDS ORDERED: MISOPROSTOL 0.2 MG TABLET ONE (07:31)
[2017-09-26] MEDS ORDERED: EPHEDRINE SULFATE INJ 50 MG/1 ML AMPULE ONE (07:32)
[2017-09-26] MEDS ORDERED: LIDOCAINE 1% INJ-PF (10 MG/ML) 30 ML SDV ONE (07:32)
[2017-09-26] MEDS ORDERED: OXYTOCIN/NORMAL SALINE 20 UNIT/1,000 ML RTUINJ ONE (07:32)
[2017-09-26] MEDS ORDERED: BUPIVACAINE HCL 0.25 % INJ/PF (2.5 MG/1 ML) 30 ML VIAL ONE (07:32)
[2017-09-26] MEDS ORDERED: FENTANYL/BUPIVACAINE/NS/PF 200 MCG/100 ML RTUINJ EPI ONE (07:32)
[2017-09-26] MEDS ORDERED: FENTANYL CITRATE INJ/PF 100 MCG/2 ML AMPUL ONE (07:34)
[2017-09-26 07:57] LABS: ABSOLUTE LYMPHOCYTES (AUTO) 1.1 10^3/uL (0.5-4.7); ABSOLUTE MONOCYTES (AUTO) 0.8 10^3/uL (0.1-1.4); ABSOLUTE NEUT (AUTO) 13.5 10^3/uL (1.7-8.2); BASOPHILS % (AUTO) 0.2 % (0-2); EOSINOPHILS % (AUTO) 0.1 % (0-6); HEMATOCRIT 34.2 % (36.0-47.0); HEMOGLOBIN 11.5 g/dL (12.0-15.5); LYMPHOCYTES % (AUTO) 6.9 % (13-45); MEAN CORPUSCULAR HEMOGLOBIN 30.4 pg (27.0-33.4); MEAN CORPUSCULAR HGB CONC 33.7 g/dL (32.0-36.0); MEAN CORPUSCULAR VOLUME 90 fl (80-97); PLATELET COUNT 212 10^3/uL (150-450); RED BLOOD COUNT 3.79 10^6/uL (3.72-5.28); RED CELL DISTRIBUTION WIDTH 13.5 % (11.5-14.0); SEGMENTED NEUTROPHILS % (AUTO) 87.8 % (42-78); TOTAL CELLS COUNTED % (AUTO) 100 %; WHITE BLOOD COUNT 15.4 10^3/uL (4.0-10.5)
[2017-09-26] MEDS ORDERED: OXYTOCIN/NORMAL SALINE 20 UNIT/1,000 ML RTUINJ IV PRN ×2 (08:53→11:59)
[2017-09-26] MEDS ORDERED: MEASLES,MUMPS&RUBELLA VACC/PF 0.5 ML VIAL SUBCUT PRN (11:59)
[2017-09-26] MEDS ORDERED: BENZOCAINE/MENTHOL AEROSOL SPRAY 56 ML TOP PRN (11:59)
[2017-09-26] MEDS ORDERED: DIPH/PERTUSS(ACELL)/TETANUS VAC/PF 0.5 ML SYR (>=10YO) IM PRN (11:59)
[2017-09-26] MEDS ORDERED: ACETAMINOPHEN WITH CODEINE #3 TABLET PO PRN (11:59)
[2017-09-26] MEDS ORDERED: MISOPROSTOL 0.2 MG TABLET PR PRN (11:59)
[2017-09-26] MEDS ORDERED: DIBUCAINE 1% OINTMENT 28 GM TP PRN (11:59)
[2017-09-26] MEDS ORDERED: ZOLPIDEM TARTRATE 5 MG TABLET PO PRN (11:59)
[2017-09-26] MEDS ORDERED: PROMETHAZINE HCL 25 MG SUPP.RECT PR PRN (12:01)
[2017-09-26] MEDS ORDERED: PROMETHAZINE HCL INJ 25 MG/1 ML VIAL IV PRN (12:01)
[2017-09-26] MEDS ORDERED: NA PHOS,M-B/NA PHOS,DI-BA (ADULT) 133 ML ENEMA PR PRN (12:01)
[2017-09-26] MEDS ORDERED: ACETAMINOPHEN 325 MG TABLET PO PRN (12:01)
[2017-09-26] MEDS ORDERED: PSEUDOEPHEDRINE HCL 30 MG TABLET PO PRN (12:01)
[2017-09-26] MEDS ORDERED: PROMETHAZINE HCL 25 MG TABLET PO PRN (12:01)
[2017-09-26] MEDS ORDERED: GLYCERIN/WITCH HAZEL LEAF 1 EACH MED..PAD TP PRN (12:01)
[2017-09-26] MEDS ORDERED: MAGNESIUM HYDROXIDE SUSP 30 ML UDCUP PO PRN (12:01)
[2017-09-26] MEDS ORDERED: DIPHENHYDRAMINE HCL 25 MG CAPSULE PO PRN (12:01)
--- NOTE | 2017-09-26 12:46 | Warning Signs in Babies ---
VOD Warning Signs Datetime Report Generated by [facility]: 09/26/2017 12:46 VOD#608 -Warning Signs in Babies: Viewed with Parent(s)/Family (08/17/2017 14:33:Jeanna Delgadillo RN)
--- NOTE | 2017-09-26 13:50 | Delivery Summary ---
Del Sum A-C Datetime Report Generated by CPN: 09/26/2017 13:50 DELIVERY PERSONNEL DELIVERY PERSONNEL: [id number] Delivery Doctor:: Kristi Blackmon MD Anesthesiologist:: Siomara Burns MD Labor and Delivery Nurse:: Jeanna Delgadillo RN Labor and Delivery Nurse:: KATY Iqbal Nursery Nurse:: Felecia Gurrola RN Nursery Nurse:: Elizabeth Levy RN Mental Health Consultant/MOLD MAINTENANCE TECHNICIAN: Sara Tsern, ST MATERNAL INFORMATION Delivery Anesthesia: Epidural Medications After Delivery: Pitocin Bolus-Please Comment Meds After Delivery Comment: pitocin 20 units in 1000 ml nss open for bolus after delivery of placenta Estimated Blood Loss (ml): 100 Maternal Complications: None Provider Comments: VMI delivered in EFRAIN presentation. No nuchal cord. Compound body cord. Shoulders and body delivered without difficulty. Cord doubly clamped and cut and infant to maternal abdomen. Placenta delivered intact spontaneously. FF at U. Lacerations repaired with lidocaine. Good hemostasis. Mother and baby stable. Apgars 8/9. Left foot appears to be in abnormal position - possible club foot. Plan for NICU and PEDS to [facility]. LABOR SUMMARY EDC: 09/22/2017 00:00 No. Babies in Womb: 1 Attempted: No Labor Anesthesia: Epidural LABOR INFORMATION Reason for Induction: Pre-Eclampsia Reason for Induction- Other: mild pre-eclampsia Onset of Labor: 09/26/2017 07:03 Complete Dilatation: 09/26/2017 10:47 Cervical Ripening Agents: Cervidil; Cytotec @ Oxytocin: Induction Group B Beta Strep: Negative Steroids Given: None Reason Steroids Not Administered: Not Applicable MEMBRANES Membranes Rupture Method: Spontaneous Rupture of Membranes: 09/26/2017 07:03 Length of Rupture (hr): 4.27 Amniotic Fluid Color: Light Meconium Amniotic Fluid Amount: Small Amniotic Fluid Odor: Normal STAGES OF LABOR Stage 1 hr: 3 Stage 1 min: 44 Stage 2 hr: 0 Stage 2 min: 32 Stage 3 hr: 0 Stage 3 min: 4 Total Time in Labor hr: 4 Total Time in Labor min: 20 VAGINAL DELIVERY Episiotomy: None Laceration #1: Vaginal Laceration Extension #1: N/A Other Laceration: supraficial labial lacerations repaired Laceration Repair: Yes Laceration Repair Note: Superficial labial lacertions bilaterally repaired Sponge Count Correct: Yes Sharps Count Correct: Yes CSECTION DELIVERY Primary Indication: N/A Secondary Indication: N/A CSection Incidence: N/A Labor: N/A Elective: N/A CSection Incision: N/A BABY A INFORMATION Infant Delivery Date/Time: 09/26/2017 11:19 Method of Delivery: Vaginal Born in Route : No : N/A Forceps: N/A Vacuum Extraction: N/A Shoulder Dystocia : Yes PRESENTATION/POSITION BABY A Presentation: Cephalic Cephalic Presentation: Vertex Vertex Position: Left Occipital Anterior Breech Presentation: N/A PLACENTA INFORMATION BABY A Placenta Delivery Time : 09/26/2017 11:23 Placenta Method of Delivery: Spontaneous Placenta Status: Delivered SCORES BABY A Heart Rate 1 min: >100 bpm Resp Effort 1 min: Good Cry Reflex Irritability 1 min: Cough or Sneeze or Pulls Away Muscle Tone 1 min: Active Motion Color 1 min: Blue/Pale Resuscitation Effort 1 min: Tactile Stimulation SCORE 1 MIN: 8 Heart Rate 5 min: >100 bpm Resp Effort 5 min: Good Cry Reflex Irritability 5 min: Cough or Sneeze or Pulls Away Muscle Tone 5 min: Active Motion Color 5 min: Body [place], Extremities Blue Resuscitation Effort 5 min: N/A SCORE 5 MIN: 9 Resuscitation Effort 10 min: N/A INFORMATION BABY A Gestational Age at Delivery: 40.4 Gestational Status: Full Term- 39- 40.6 Weeks Outcome : Liveborn Condition : Stable Sex: Male IDENTIFICATION BABY A Verification Date/Time: 09/26/2017 11:45 ID Band Number: [id number] Mother's Name Verified: Yes RN Verifying Infant: R Juan Pablo RN, S [place] RNC WEIGHT/LENGTH BABY A Infant Birthweight (gm): 3220 Infant Weight (lb): 7 Weight (oz): 2 Length (in): 21.50 Length (cm): 54.61 CORD INFORMATION BABY A No. Cord Vessels: 3 Nuchal Cord : N/A Cord Blood Taken: Yes-For Eval (Mom's Blood Type - or O+) Infant Suction: Mouth; Nose ASSESSMENT BABY A Complications: Meconium Physical Findings at Delivery: Caput Succedaneum; Molding of the Head Physical Findings- Other: body cord noted Infant Respirations: Appears Normal Skin to Skin: Yes Skin to Skin Time (min): 60 Basin Operator/ALS Called : No Infant Care By: Cortney Levy RN Transferred To: Remains with Mother BABY B INFORMATION : N/A SIGNATURES Signature: with User ID: [email or web address] : I personally evaluated and examined the patient in conjunction with the MLP and agree with the assessment, treatment plan and disposition.
[2017-09-26] MEDS: IBUPROFEN 800 MG TABLET PO SCH ×2 (15:29→21:51)
[2017-09-26] MEDS: DOCUSATE SODIUM 100 MG CAPSULE PO SCH (17:11)
[2017-09-26] MEDS: FERROUS SULFATE 325 MG TABLET PO SCH (17:12)
[2017-09-26] MEDS: ACETAMINOPHEN WITH CODEINE #3 TABLET PO PRN (20:07)
[2017-09-26] MEDS: FAMOTIDINE 20 MG TABLET PO SCH (21:52)
[2017-09-27] MEDS: IBUPROFEN 800 MG TABLET PO SCH ×3 (06:24→21:44)
[2017-09-27 07:23] LABS: MEAN CORPUSCULAR VOLUME 90 fl (80-97)
[2017-09-27 07:37] LABS: HEMATOCRIT 27.3 % (36.0-47.0); MEAN CORPUSCULAR HEMOGLOBIN 31.3 pg (27.0-33.4); MEAN CORPUSCULAR HGB CONC 34.9 g/dL (32.0-36.0); PLATELET COUNT 206 10^3/uL (150-450); RED BLOOD COUNT 3.04 10^6/uL (3.72-5.28); RED CELL DISTRIBUTION WIDTH 13.6 % (11.5-14.0); WHITE BLOOD COUNT 12.8 10^3/uL (4.0-10.5)
[2017-09-27 07:38] LABS: HEMOGLOBIN 9.5 g/dL (12.0-15.5)
--- NOTE | 2017-09-27 09:15 | PDOC PROGRESS REPORT ---
Subjective-OB Progress Note for:: 09/27/17 Subjective: Doing well, no c/o, hsb at BS, , voiding Physical Exam (OB) Vital Signs: Temp Pulse Resp BP Pulse Ox 97.8 F 57 L 16 120/69 97 09/27/17 07:25 09/27/17 07:25 09/27/17 07:25 09/27/17 07:25 09/27/17 07:25 Intake & Output 09/26/17 09/27/17 09/28/17 06:59 06:59 06:59 Intake Total 560 Balance 560 - PIH/Pre-Eclampsia DTR's: 2 + Clonus: Negative Headache: Absent Epigastric Pain: No Visual Changes: No - Lochia Lochia Amount: Small 10-25 ml Lochia Color: Rubra/Red - Abdomen Description: Soft Hernia Present: No Fundal Description: Firm, Midline Fundal Height: u/u - u/2 Objective-Diagnostic Laboratory: 09/27/17 07:05 09/24/17 22:20 09/27/17 07:05 WBC 12.8 H RBC 3.04 L Hgb 9.5 L Hct 27.3 L MCV 90 MCH 31.3 MCHC 34.9 RDW 13.6 Plt Count 206 Assessment and Plan(PN) - Assessment and Plan (1) Thin meconium stained amniotic fluid Is this a current diagnosis for this admission?: Yes (2) Vaginal delivery Is this a current diagnosis for this admission?: Yes (3) Pre-eclampsia Qualifiers: Trimester: third trimester Qualified Code(s): O14.93 - Unspecified pre- eclampsia, third trimester Is this a current diagnosis for this admission?: Yes (4) Post-term , 40-42 weeks of gestation Is this a current diagnosis for this admission?: Yes - Time Spent with Patient Time with patient: Less than 15 minutes Medications reviewed and adjusted accordingly: Yes - Disposition Anticipated Discharge: Home Within: within 24 hours
[2017-09-27] MEDS: FAMOTIDINE 20 MG TABLET PO SCH ×2 (09:24→21:45)
[2017-09-27] MEDS: PRENATAL VITAMIN W DHA CAPSULE PO SCH (09:25)
[2017-09-27] MEDS: SENNOSIDES/DOCUSATE 8.6-50 MG 1 EACH TABLET PO SCH (09:25)
[2017-09-27] MEDS: DOCUSATE SODIUM 100 MG CAPSULE PO SCH ×2 (09:26→17:58)
[2017-09-27] MEDS: FERROUS SULFATE 325 MG TABLET PO SCH ×2 (09:27→17:58)
[2017-09-27] MEDS ORDERED: [UNRECOGNIZED DRUG - OTHER] PO SCH (10:00)
[2017-09-27] MEDS ORDERED: IRON PO SCH (10:00)
[2017-09-27] MEDS ORDERED: FOLIC PO SCH (10:00)
[2017-09-28] MEDS: ACETAMINOPHEN WITH CODEINE #3 TABLET PO PRN (00:08)
[2017-09-28] MEDS: IBUPROFEN 800 MG TABLET PO SCH (06:21)
[2017-09-28] MEDS: SENNOSIDES/DOCUSATE 8.6-50 MG 1 EACH TABLET PO SCH (09:02)
[2017-09-28] MEDS: FERROUS SULFATE 325 MG TABLET PO SCH (09:02)
[2017-09-28] MEDS: DOCUSATE SODIUM 100 MG CAPSULE PO SCH (09:02)
[2017-09-28] MEDS: PRENATAL VITAMIN W DHA CAPSULE PO SCH (09:03)
[2017-09-28] MEDS: FAMOTIDINE 20 MG TABLET PO SCH (09:06)
[2017-09-28 09:40] VITALS: BP 122/79
--- NOTE | 2017-09-28 10:42 | PDOC PROGRESS REPORT ---
Subjective-OB Progress Note for:: 09/28/17 Subjective: Doing well, no c/o, family at BS, , no depression, but anxiety is tolerable, continues to smoke, scant bleeding Physical Exam (OB) Vital Signs: Temp Pulse Resp BP Pulse Ox 97.7 F 79 17 122/79 97 09/28/17 09:10 09/28/17 09:10 09/28/17 09:10 09/28/17 09:10 09/28/17 09:10 Intake & Output 09/27/17 09/28/17 09/29/17 06:59 06:59 06:59 Intake Total 560 410 Balance 560 410 - PIH/Pre-Eclampsia DTR's: 2 + Clonus: Negative Headache: Absent Epigastric Pain: No Visual Changes: No - Lochia Lochia Amount: Scant < 10 ml Lochia Color: Rubra/Red - Abdomen Description: Soft Hernia Present: No Fundal Description: Firm, Midline Fundal Height: u/u - u/2 Objective-Diagnostic Laboratory: 09/27/17 07:05 09/24/17 22:20 Assessment and Plan(PN) - Assessment and Plan (1) Thin meconium stained amniotic fluid Is this a current diagnosis for this admission?: Yes (2) Vaginal delivery Is this a current diagnosis for this admission?: Yes (3) Pre-eclampsia Qualifiers: Trimester: third trimester Qualified Code(s): O14.93 - Unspecified pre- eclampsia, third trimester Is this a current diagnosis for this admission?: Yes (4) Post-term , 40-42 weeks of gestation Is this a current diagnosis for this admission?: Yes - Time Spent with Patient Time with patient: Less than 15 minutes Smoking Education Provided: Over 3 minutes Medications reviewed and adjusted accordingly: Yes - Disposition Anticipated Discharge: Home Within: Other - home today
--- NOTE | 2017-09-28 10:48 | PDOC DISCHARGE SUMMARY ---
Final Diagnosis Discharge Date: 09/28/17 - Final Diagnosis (1) Thin meconium stained amniotic fluid Is this a current diagnosis for this admission?: Yes (2) Vaginal delivery Is this a current diagnosis for this admission?: Yes (3) Pre-eclampsia Is this a current diagnosis for this admission?: Yes (4) Post-term , 40-42 weeks of gestation Is this a current diagnosis for this admission?: Yes Discharge Data - Discharge Medication Home Medications: Vit,Calc78/Iron/Folic [Prenatabs FA Tablet] 1 tab PO DAILY 08/17/17 Gestational Age: 40.4 Reason(s) for Admission: Induction of Labor Admission Note: Cervidil, cytotec, Pitocin, Pre-eclampsia Procedures: NST, Ultrasound Intrapartum Procedure(s): Spontaneous Vaginal Delivery - [place] Data Baby 1 Male at 1 minute: 8 at 5 minutes: 9 Weight: 3.232 kg Home with Mother: Yes Complications: No - Diagnosis Test Laboratory: Temp Pulse Resp BP Pulse Ox 97.7 F 79 17 122/79 97 09/28/17 09:10 09/28/17 09:10 09/28/17 09:10 09/28/17 09:10 09/28/17 09:10 09/24/17 09/24/17 09/26/17 22:04 22:20 07:47 RBC 3.45 L 3.79 Hgb 10.7 L 11.5 L Hct 31.1 L 34.2 L Urine Opiates Screen NEGATIVE 09/27/17 07:05 RBC 3.04 L Hgb 9.5 L Hct 27.3 L Urine Opiates Screen - Discharge information/Instructions Discharge Activity: Activity As Tolerated, No Lifting Over 10 Pounds, No Lifting /Push/Pulling, Pelvic Rest Discharge Diet: As Tolerated, Regular Disposition: HOME, SELF-CARE Follow up with: [facility] in: 4, Weeks
== END 2017-09-28 12:15 | disposition home or self-care (01) | DRG 775 ==
LOC: EEVIPCON 21:53 → LR 21:53 → 2S 09-26 13:32
PROVIDERS: ADMIT Student in an Organized Health Care Education/Training Program; ATTEND Student in an Organized Health Care Education/Training Program
PROC: 4A1HXCZ Monitoring of Products of Conception, Cardiac Rate, External Approach (ICD-10-PCS; 2017-09-24)
PROC: 10E0XZZ Delivery of Products of Conception, External Approach (ICD-10-PCS; principal; 2017-09-26)
PROC: 0HQ9XZZ Repair Perineum Skin, External Approach (ICD-10-PCS; 2017-09-26)
DX: O14.04 Mild to moderate pre-eclampsia, complicating childbirth (principal); O99.334 Smoking (tobacco) complicating childbirth; O77.0 Labor and delivery complicated by meconium in amniotic fluid; O70.0 First degree perineal laceration during delivery; O69.89X0 Labor and delivery complicated by other cord complications, not applicable or unspecified; F17.210 Nicotine dependence, cigarettes, uncomplicated; O99.344 Other mental disorders complicating childbirth; F32.9 Major depressive disorder, single episode, unspecified; F41.9 Anxiety disorder, unspecified; Z3A.40 40 weeks gestation of pregnancy; Z37.0 Single live birth
CPT/HCPCS: 36415; 80053; 80307; 81005; 83615; 84550; 85025; 85027; 86592; 86850; 86900; 86901; 87491; 87591; J2270; J2300; J2550; J2590; J3010; J3490